=== PATIENT | female | born 1945 | race Caucasian/White ===

== ENCOUNTER → 2016-06-03 | Outpatient (CLI) | payer OTHER, MEDICARE ==
[~2016-06-03] MED LIST: ACETAMINOPHEN325 M1 PO; CALCIUM 500 +1 EAC5 PO; FOLIC ACID1 MG PO; FOSAMAX 70 MG T70 M1 PO; METHOTREXATE 22.5 MG PO; MULTIVITAMINS PO; PREVACID 24HR15 MG PO; RELAFEN500 MG PO; VALACYCLOVIR1000 MG PO
== END ==
LOC: RAD 13:06
DX: R92.8 Other abnormal and inconclusive findings on diagnostic imaging of breast (principal)